=== PATIENT | female | born 1950 | race Caucasian/White ===

== ENCOUNTER → 2020-12-24 | Outpatient (CLI) | payer BC, OTHER | LOC: RAD 10:29 | DX: M54.9 Dorsalgia, unspecified (principal); R05 Cough; M47.813 Spondylosis without myelopathy or radiculopathy, cervicothoracic region; M47.816 Spondylosis without myelopathy or radiculopathy, lumbar region; I27.20 Pulmonary hypertension, unspecified | CPT/HCPCS: 71046; 72050; 72072; 72110 ==

== ENCOUNTER → 2021-12-19 | Outpatient (CLI) | payer BC, OTHER | LOC: RAD 14:24 | DX: M54.2 Cervicalgia (principal); M54.50 Low back pain, unspecified; R05.9 Cough, unspecified; M47.812 Spondylosis without myelopathy or radiculopathy, cervical region; M47.814 Spondylosis without myelopathy or radiculopathy, thoracic region; M51.36 Other intervertebral disc degeneration, lumbar region | CPT/HCPCS: 71046; 72050; 72070; 72110 ==

== ENCOUNTER → 2022-01-07 | Outpatient (CLI) | payer BC, OTHER | LOC: US 10:30 | DX: R10.32 Left lower quadrant pain (principal); K80.80 Other cholelithiasis without obstruction; K82.8 Other specified diseases of gallbladder; R93.89 Abnormal findings on diagnostic imaging of other specified body structures | CPT/HCPCS: 76700; 76856 ==